=== PATIENT | male | born 1965 | race Two or more races ===

== ENCOUNTER 2018-05-17 12:48 | Outpatient (CLI) | payer OTHER | END 2018-05-17 12:55 | disposition home or self-care (01) | LOC: TOM 12:48 | DX: R31.0 Gross hematuria (principal) ==

== ENCOUNTER 2018-05-17 13:43 | Outpatient (CLI) | payer OTHER | END 2018-05-17 13:50 | disposition home or self-care (01) | LOC: LAB 13:43 | DX: N30.00 Acute cystitis without hematuria (principal) ==

== ENCOUNTER 2018-06-10 08:38 | Outpatient (CLI) | payer OTHER | END 2018-06-10 08:44 | disposition home or self-care (01) | LOC: RX STUDY 08:38 | DX: N20.0 Calculus of kidney (principal) ==